=== PATIENT | female | born 1985 | race Caucasian/White ===

== ENCOUNTER 2018-04-22 20:53 | Emergency (ER) | payer OTHER ==
[~2018-04-22] VITALS: Ht 165.1 cm; Wt 65.3 kg
[2018-04-22] MEDS ORDERED: PAXIL10 MG PO (21:00)
[2018-04-22] MEDS ORDERED: ZUBSOLV 5.7-1.1 EACH SUBLING (21:00)
[2018-04-22] MEDS ORDERED: ATIVAN1 MG PO (21:01)
[2018-04-22] MEDS ORDERED: ZUBSOLV 0.7-0.1 EACH SUBLING (21:13)
[2018-04-22 21:33] VITALS: BP 115/76
== END 2018-04-22 21:34 | disposition home or self-care (01) ==
LOC: ER 20:53
DX: Z76.0 Encounter for issue of repeat prescription (principal); F32.9 Major depressive disorder, single episode, unspecified; F41.9 Anxiety disorder, unspecified

== ENCOUNTER 2018-06-10 20:04 | Emergency (ER) | payer OTHER ==
[~2018-06-10] VITALS: Ht 167.6 cm; Wt 74.8 kg
[~2018-06-10 20:04] MED LIST: ATIVAN1 MG PO; PAXIL10 MG PO; ZUBSOLV 0.7-0.1 EACH SUBLING; ZUBSOLV 5.7-1.1 EACH SUBLING
[2018-06-10 20:22] VITALS: BP 122/84
[2018-06-10] MEDS ORDERED: ZUBSOLV 5.7-1.1 EACH SUBLING (21:43)
== END 2018-06-10 22:24 | disposition home or self-care (01) ==
LOC: ER 20:04
DX: R52 Pain, unspecified (principal); R09.89 Other specified symptoms and signs involving the circulatory and respiratory systems; Z76.0 Encounter for issue of repeat prescription; F11.20 Opioid dependence, uncomplicated; F41.9 Anxiety disorder, unspecified; F32.9 Major depressive disorder, single episode, unspecified